=== PATIENT | female | born 1990 | race Caucasian/White ===

== ENCOUNTER 2018-08-09 18:27 | Observation (INO) | payer MEDICARE ==
[2018-08-09] MEDS ORDERED: CLINDAMYCIN 900 MG PREMIX IVPB 900 MG/50 ML BAG IVPB ONE ×2 (19:07→19:39)
[2018-08-09] MEDS ORDERED: DEXAMETHASONE SOD PHOSPHATE 10 MG/1 ML VIAL IVPUSH ONE (19:07)
--- NOTE | 2018-08-09 19:18 | PDOC ---
Attending Attestation - Resident Resident Name: Jimmie Lopez - ED Attending Attestation I have performed the following: I have examined & evaluated the patient, The case was reviewed & discussed with the resident, I agree w/resident's findings & plan, Exceptions are as noted - Physicial Exam PE: 08/09/18 20:23 Patient is awake and alert, febrile, in mild distress Normocephalic and atraumatic PERRLA, EOMI, no photophobia + Dysphonia; + Pooling of secretions is noted within the oropharynx; uvula is displaced of the right; Neck is supple; left anterior cervical lymphadenopathy (enlarged) cta rrr - Medical Decision Making 08/09/18 20:24 28-year-old female presents with 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 We will administer IV clindamycin. Will attempt drainage of the abscess. Likely placement in observation for observation and IV antibiotics. 08/09/18 20:56 Attempted needle aspiration of the FINANCIAL SERVICES PROFESSIONAL. Several attempts were made but no purulent material aspirated. Patient tolerated procedure well. Peritonsillar cellulitis is suspected. We'll place in observation for IV antibiotics. <Vincent Casillas - Last Filed: 08/09/18 20:56> - HPI HPI: 08/09/18 21:19 The patient is a 28 year old female, with no significant PMH, who presents to the emergency department with 2 days of sore throat. The patient states the sore throat pain is worsened with swallowing. The patient also endorses a mild fever but denies recent chills. The patient denies chest pain, shortness of breath, headache and dizziness. Denies chills, nausea, vomit, diarrhea and constipation. Denies dysuria, frequency, urgency and hematuria. Allergies: NKA Documentation prepared by Wojciech Cutler, acting as manager medical device for Vincent Casillas MD. <Wojciech Cutler - Last Filed: 08/09/18 21:20>
[2018-08-09] MEDS ORDERED: CLINDAMYCIN 600MG PREMIX IVPB 600 MG/50 ML BAG IVPB ONE (19:38)
[2018-08-09] MEDS ORDERED: DEXAMETHASONE SOD PHOSPHATE 10 MG/1 ML VIAL ONE (19:39)
[2018-08-09 19:41] LABS: BASO % 0.4 % (0-2.0); EOS % 0.2 % (0-4.5); HEMOGLOBIN 13.4 GM/dL (10.7-15.3); LYMPH % 15.4 % (8-40); MCH 27.3 pg (25.7-33.7); MCHC 33.5 g/dl (32.0-36.0); MEAN CELL VOLUME 81.4 fl (80-96); MEAN PLT VOLUME 7.7 fl (7.5-11.1); MONO % 3.8 % (3.8-10.2); NEUT % 80.2 % (42.8-82.8); PLATELET COUNT 371 K/MM3 (134-434); RBC 4.92 M/mm3 (3.60-5.2); WHITE BLOOD COUNT 14.8 K/mm3 (4.0-10.0)
[2018-08-09 20:03] LABS: INR 1.2 (0.83-1.09); PROTHROMBIN TIME (PATIENT) 14.2 SEC (9.7-13.0)
--- NOTE | 2018-08-09 21:03 | PDOC ---
History of Present Illness - General Chief Complaint: Sore Throat Stated Complaint: FEVER/PAIN Time Seen by Provider: 08/09/18 18:59 History Source: Patient Exam Limitations: No Limitations - History of Present Illness Initial Comments: 08/09/18 21:00 The patient is a 28F with no PMH who presents to the ER with complaints of a sore throat. The patient states that she's had a sore throat for 2 days and it has not improved. She states that the pain is worse and she has difficulty swallowing. She has no problem breathing. She admits to a mild fever but no chills, nausea, vomiting, CP, or SOB. Past History - Past Medical History Allergies/Adverse Reactions: Allergies Allergy/AdvReac Type Severity Reaction Status Date / Time No Known Allergies Allergy Verified 08/09/18 18:52 - Suicide/Smoking/Psychosocial Hx Smoking History: Never smoked Review of Systems - Review of Systems Able to Perform ROS?: Yes Comments:: 08/09/18 21:01 GENERAL/CONSTITUTIONAL: No fever or chills. No weakness. HEAD, EYES, EARS, NOSE AND THROAT: Positive for sore throat. No change in vision. No ear pain or discharge. CARDIOVASCULAR: No chest pain, palpitations, or lightheadedness. RESPIRATORY: No cough, wheezing, shortness of breath, or hemoptysis. GASTROINTESTINAL: No nausea, vomiting, diarrhea, constipation, or abdominal pain. GENITOURINARY: No dysuria, frequency, hematuria, or change in urination. MUSCULOSKELETAL: No joint or muscle swelling or pain. No neck or back pain. SKIN: No rash or lesions. NEUROLOGIC: No headache, numbness, tingling, focal weakness, loss of consciousness, or change in strength/sensation. Is the patient limited Latvian proficient: No *Physical Exam - Vital Signs Last Vital Signs Temp Pulse Resp BP Pulse Ox 99.9 F H 92 H 18 112/67 99 08/09/18 18:53 08/09/18 18:53 08/09/18 18:53 08/09/18 18:53 08/09/18 18:53 - Physical Exam Comments: 08/09/18 21:01 GENERAL: Well developed, well nourished. Awake and alert. No acute distress. HEENT: Peritonsillar fullness representing an abscess on L side. Normocephalic, atraumatic. Hearing grossly normal. Moist mucous membranes. PERRLA, EOMI. No conjunctival pallor. Sclera are non-icteric. NECK: Supple. Full ROM. Fullness on L neck. CARDIOVASCULAR: Regular rate and rhythm. No murmurs, rubs, or gallops. PULMONARY: No evidence of respiratory distress. Lungs clear to auscultation bilaterally. No wheezing, rales or rhonchi. ABDOMINAL: Soft. Non-tender. Non-distended. No rebound or guarding. GENITOURINARY: No CVA tenderness bilaterally. MUSCULOSKELETAL: Normal range of motion at all joints. No bony deformities or tenderness. EXTREMITIES: No cyanosis. No clubbing. No edema. No calf tenderness or swelling. SKIN: Warm and dry. Normal capillary refill. No rashes. No jaundice. NEUROLOGICAL: Alert, awake, appropriate. Cranial nerves 2-12 grossly intact. Normal speech. Gait is normal without ataxia. PSYCHIATRIC: Cooperative. Good eye contact. Appropriate mood and affect. ED Treatment Course - LABORATORY CBC & Chemistry Diagram: 08/09/18 19:34 08/09/18 19:34 - ADDITIONAL ORDERS Additional order review: Laboratory Results 08/09/18 08/09/18 19:34 19:34 PT with INR 14.20 H INR 1.20 H Sodium Cancelled Potassium Cancelled Chloride Cancelled Carbon Dioxide Cancelled Anion Gap Cancelled BUN Cancelled Creatinine Cancelled Creat Clearance w eGFR Cancelled Random Glucose Cancelled Calcium Cancelled Total Bilirubin Cancelled AST Cancelled ALT Cancelled Alkaline Phosphatase Cancelled Total Protein Cancelled Albumin Cancelled 08/09/18 19:34 RBC 4.92 MCV 81.4 MCHC 33.5 RDW 14.0 MPV 7.7 Neutrophils % 80.2 Lymphocytes % 15.4 Monocytes % 3.8 Eosinophils % 0.2 Basophils % 0.4 - Medications Given in the ED: ED Medications Discontinued Medications Generic Name Dose Route Start Last Admin Trade Name Freq PRN Reason Stop Dose Admin Dexamethasone Sodium Phosphate 10 mg 08/09/18 19:07 08/09/18 19:44 Decadron Injection - IVPUSH 08/09/18 19:08 10 mg ONCE ONE Administration Clindamycin Phosphate 900 mg in 50 mls @ 100 mls/hr 08/09/18 19:07 08/09/18 19:44 Cleocin 900 Mg Premix Ivpb - IVPB 08/09/18 19:36 100 mls/hr ONCE ONE Administration Protocol Medical Decision Making - Medical Decision Making 08/09/18 21:02 The patient is a 28F with no PMH who 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 Needle aspiration attempted without success. Pt is tolerating secretions and has a patent airway. Will admit for IV abx. Steroids and IV abx given. Microblogged for admission. *DC/Admit/Observation/Transfer - Discharge Dispostion Decision to Admit order Date/Time: Decision to Admit Order Category Date Time Status Decision to Admit to Hospital Routine Admission 08/09/18 20:32 Active - Referrals - Patient Instructions - Post Discharge Activity
--- NOTE | 2018-08-09 21:37 | HP ---
CHIEF COMPLAINT: sore throat PCP:will see Dr Vann at [facility] out pt clinic HISTORY OF PRESENT ILLNESS: 28 year old female with no pmhx presented to the ED with 2 days history fo sore throat and fver, symptoms started yesterday morning and worsening through out the day , pain is between 5/10 and 10/10 radiated to her left ear associated with fever and chills. 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 she reports slight headache, but denies any blurry vision , runny nose , ear discharged, denies any chest pain , sob, palpitation, abdominal pain , N/V/D/C, denies any urinary symptoms or joint pain. LMP 4 weeks ago ,did not get her period yet , sexually active with her no condoms, IUD or OCP was reported. ER course was notable for: (1)cbc , bmp (2)Bhcg (3) Abx clindamycine Recent Travel:denies PAST MEDICAL HISTORY:none PAST SURGICAL HISTORY:none Social History: Smoking:denies Alcohol:denies Drugs: denies Family History: Allergies No Known Allergies Allergy (Verified 08/09/18 18:52) HOME MEDICATIONS: REVIEW OF SYSTEMS CONSTITUTIONAL: Absent: fever, chills, diaphoresis, generalized weakness, malaise, loss of appetite, weight change HEENT: Absent: rhinorrhea, nasal congestion, throat pain, throat swelling, difficulty swallowing, mouth swelling, ear pain, eye pain, visual changes CARDIOVASCULAR: Absent: chest pain, syncope, palpitations, irregular heart rate, lightheadedness , peripheral edema RESPIRATORY: Absent: cough, shortness of breath, dyspnea with exertion, orthopnea, wheezing, stridor, hemoptysis GASTROINTESTINAL: Absent: abdominal pain, abdominal distension, nausea, vomiting, diarrhea, constipation, melena, hematochezia GENITOURINARY: Absent: dysuria, frequency, urgency, hesitancy, hematuria, flank pain, genital pain MUSCULOSKELETAL: Absent: myalgia, arthralgia, joint swelling, back pain, neck pain SKIN: Absent: rash, itching, pallor HEMATOLOGIC/IMMUNOLOGIC: Absent: easy bleeding, easy bruising, lymphadenopathy, frequent infections ENDOCRINE: Absent: unexplained weight gain, unexplained weight loss, heat intolerance, cold intolerance NEUROLOGIC: Absent: headache, focal weakness or paresthesias, dizziness, unsteady gait, seizure, mental status changes, bladder or bowel incontinence PSYCHIATRIC: Absent: anxiety, depression, suicidal or homicidal ideation, hallucinations. PHYSICAL EXAMINATION Vital Signs - 24 hr 08/09/18 18:53 Temperature 99.9 F H Pulse Rate 92 H Respiratory 18 Rate Blood Pressure 112/67 O2 Sat by Pulse 99 Oximetry (%) GENERAL: AAOx 3 in mild distress HEAD:NC/AT EYES: JANETTE, EOMI ,sclera anicteric, conjunctiva clear. EARS, NOSE, THROAT: Ears normal, nares patent, oropharynx enlarged left tonsills with petechia and exudates. left peritonsillar mass Moist mucous membranes. NECK: Normal range of motion, supple left anterior lymphadenopathy,No JVD, LUNGS: CTA B/L , No wheezes, and no crackles. No accessory muscle use. HEART: RRR, normal S1 and S2 without murmur, ABDOMEN: Soft, nontender, not distended, normoactive bowel sounds, no guarding, no rebound, LOWER EXTREMITIES: 2+ pulses, warm, well-perfused. No calf tenderness. No peripheral edema. NEUROLOGICAL: no focal deficit . Normal speech. PSYCHIATRIC: Cooperative. Good eye contact. Appropriate mood and affect. SKIN: Warm, dry, normal turgor, Laboratory Results - last 24 hr 08/09/18 08/09/18 08/09/18 19:34 19:34 19:34 WBC 14.8 H RBC 4.92 Hgb 13.4 Hct 40.0 MCV 81.4 MCH 27.3 MCHC 33.5 RDW 14.0 Plt Count 371 MPV 7.7 Absolute Neuts (auto) 11.8 H Neutrophils % 80.2 Lymphocytes % 15.4 Monocytes % 3.8 Eosinophils % 0.2 Basophils % 0.4 Nucleated RBC % 0 PT with INR 14.20 H INR 1.20 H Sodium Cancelled Potassium Cancelled Chloride Cancelled Carbon Dioxide Cancelled Anion Gap Cancelled BUN Cancelled Creatinine Cancelled Creat Clearance w eGFR Cancelled Random Glucose Cancelled Calcium Cancelled Total Bilirubin Cancelled AST Cancelled ALT Cancelled Alkaline Phosphatase Cancelled Total Protein Cancelled Albumin Cancelled Blood Type Antibody Screen 08/09/18 19:34 WBC RBC Hgb Hct MCV MCH MCHC RDW Plt Count MPV Absolute Neuts (auto) Neutrophils % Lymphocytes % Monocytes % Eosinophils % Basophils % Nucleated RBC % PT with INR INR Sodium Potassium Chloride Carbon Dioxide Anion Gap BUN Creatinine Creat Clearance w eGFR Random Glucose Calcium Total Bilirubin AST ALT Alkaline Phosphatase Total Protein Albumin Blood Type O POSITIVE Antibody Screen Negative CBC, BMP 08/09/18 19:34 ASSESSMENT/PLAN: 28 year old female with no pmhx presented to Ed with 2 days history of sore throat and fever was found to have peritonsillar abscess. #left Peritonsillar abscess * sore throat and fever x2 days * wbc 14.8 * started on clindamycine in ED will cont 600 mg IV Q 6hr * dexamethasone 10 mg IV one dose in ED * BHCG to R/O * if negative CT neck * admit to obs * IV fluids * cbc, bmp , ESR * Ibuprofen for pain # FEN * F: NS @ 100 CC/hr * E: monitor * N: NPO # Proph * scds both legs # dispo * admit to obs
--- NOTE | 2018-08-09 21:43 | PN ---
Teaching Attending Note Name of Resident: Garrick Vann ATTENDING PHYSICIAN STATEMENT I saw and evaluated the patient. I reviewed the resident's note and discussed the case with the resident. I agree with the resident's findings and plan as documented. SUBJECTIVE: Patient is a 28 year old woman with no significant PMH who presents to the ER with complaints of a sore throat. The patient states that she's had a sore throat for 2 days and it has not improved. She states that the pain is worse and she has difficulty swallowing. She has no problem breathing. She admits to a mild fever but no chills, nausea, vomiting, CP, or SOB. Was exposed to a sick contact at work recently. LMP was 4 weeks ago. Suspected peritonsillar abscess, aspiration attempts did not yield any fluid. She got decadron and clindamycin IV in the ER. OBJECTIVE: Alert Vital Signs Period Temp Pulse Resp BP Sys/Mustafa Pulse Ox Last 24 Hr 99.9 F 92 18 112/67 99 HEENT: No Jaundice, eye redness or discharge, PERRLA, EOMI. Normocephalic, atraumatic. Unable to open mouth very wide; peritonsillar fullness; External ears are normal and hearing is grossly intact. No nasal discharge. Neck: Left neck fullness, tender with adenopathy. No JVD Chest: Good effort. Clear to auscultation and percussion. Heart: Regular. No S3, rub or murmur Abdomen: Not distended, soft, nontender and no HSM. No rebound or guarding. Normoactive bowel sounds. Ext: Peripheral pulses intact. No leg edema. Skin: Warm and dry. No petechiae, rash or ecchymosis. Neuro: Alert. Oriented x3. CN 2-12 grossly intact. Sensation grossly intact in all four extremities and DTR are symmetric. Abnormal Lab Results 08/09/18 08/09/18 19:34 19:34 WBC 14.8 H Absolute Neuts (auto) 11.8 H PT with INR 14.20 H INR 1.20 H ASSESSMENT AND PLAN: 1. Tonsillitis/Peritonsillar cellulitis - Will get a CT scan of neck to rule out abscess and/or airway impingement. Already got Decadron. Will continue Clindamycin 600 mg IV q 6 hours, IV NS at 100 ml/hour and monitor closely for respiratory distress or stridor. Implement aspiration precautions. If no improvement in 24 hours, will expand antibiotics coverage. Consult ENT if CT scan shows peritonsillar abscess. Consult ID. 2. DVT prophylaxis - Lovenox 40 mg SQ q 24 hours. 3. Advance directives - Full code
[2018-08-09 21:51] LABS: INR 1.28 (0.83-1.09); PROTHROMBIN TIME (PATIENT) 15.1 SEC (9.7-13.0)
[2018-08-09 22:04] LABS: ALBUMIN 3.8 g/dl (3.4-5.0); ALK PHOS 103 U/L (45-117); ANION GAP 10 MMOL/L (8-16); BLOOD UREA NITROGEN 9 mg/dL (7-18); CALCIUM 8.7 mg/dL (8.5-10.1); CHLORIDE 102 mmol/L (98-107); CO2 23 mmol/L (21-32); CREATININE 0.6 mg/dL (0.55-1.3); GLUCOSE,RANDOM 91 mg/dL (74-106); POTASSIUM 3.7 mmol/L (3.5-5.1); SGOT/AST 17 U/L (15-37); SGPT/ALT 29 U/L (13-61); SODIUM 135 mmol/L (136-145); TOT PROT 8.2 g/dl (6.4-8.2)
[2018-08-09] MEDS ORDERED: SODIUM CHLORIDE 1,000 ML IV SCH (22:45)
[2018-08-09] MEDS ORDERED: IBUPROFEN 400 MG TABLET (FP) PO PRN (23:06)
[2018-08-10 01:56] VITALS: BMI 24.0
[2018-08-10] MEDS: CLINDAMYCIN 600MG PREMIX IVPB 600 MG/50 ML BAG IVPB SCH ×2 (02:43→09:13)
[2018-08-10 06:10] VITALS: TEMP 98.2
[2018-08-10 08:22] LABS: BASO % 0.1 % (0-2.0); HEMATOCRIT 37.3 % (32.4-45.2); HEMOGLOBIN 12.3 GM/dL (10.7-15.3); LYMPH % 9.7 % (8-40); MEAN CELL VOLUME 81.7 fl (80-96); MEAN PLT VOLUME 7.8 fl (7.5-11.1); NEUT % 89.2 % (42.8-82.8); PLATELET COUNT 355 K/MM3 (134-434); RBC 4.56 M/mm3 (3.60-5.2); RDW 13.7 % (11.6-15.6); WHITE BLOOD COUNT 11.7 K/mm3 (4.0-10.0)
[2018-08-10 08:33] LABS: ANION GAP 12 MMOL/L (8-16); BLOOD UREA NITROGEN 16 mg/dL (7-18); CALCIUM 8.7 mg/dL (8.5-10.1); CHLORIDE 106 mmol/L (98-107); CO2 22 mmol/L (21-32); CREATININE 0.5 mg/dL (0.55-1.3); GLUCOSE,RANDOM 101 mg/dL (74-106); POTASSIUM 3.9 mmol/L (3.5-5.1); SODIUM 140 mmol/L (136-145)
[2018-08-10 09:30] LABS: INR 1.26 (0.83-1.09); PROTHROMBIN TIME (PATIENT) 14.9 SEC (9.7-13.0)
[2018-08-10 14:27] VITALS: BP 95/57; PULSE 82
== END 2018-08-10 15:53 | disposition home or self-care (01) ==
LOC: JER 18:27 → JERBED 20:32 → J7W 08-10 01:28
PROVIDERS: ADMIT Internal Medicine; ATTEND Internal Medicine
PROC: 3E03329 Introduction of Other Anti-infective into Peripheral Vein, Percutaneous Approach (ICD-10-PCS; principal; 2018-08-09)
PROC: 3E033NZ Introduction of Analgesics, Hypnotics, Sedatives into Peripheral Vein, Percutaneous Approach (ICD-10-PCS; 2018-08-09)
PROC: 3E0337Z Introduction of Electrolytic and Water Balance Substance into Peripheral Vein, Percutaneous Approach (ICD-10-PCS; 2018-08-09)
DX: J36 Peritonsillar abscess (principal)
CPT/HCPCS: 36415; 70498-TC; 80048; 80053; 84702; 85025; 85610; 85730; 86850; 86900; 86901; 96365; 96375; 99283-25; G0378; J1100; J7030

== ENCOUNTER 2022-04-15 14:16 | Emergency (ER) | payer OTHER ==
[2022-04-15 14:38] VITALS: BP 125/62; PULSE 64; TEMP 98.2; BMI 25.2
[2022-04-15] MEDS ORDERED: SODIUM CHLORIDE 0.9% 500 ML INFUS.BAG IV ONE (15:32)
[2022-04-15] MEDS ORDERED: ACETAMINOPHEN 1000 MG/100 ML BAG IVPB ONE (15:32)
[2022-04-15] MEDS ORDERED: ACETAMINOPHEN INJECTION 100 ML IVPB ONE (15:57)
[2022-04-15 16:15] LABS: BASO % 0.7 % (0-2.0); EOS % 2.1 % (0-4.5); HEMATOCRIT 41.1 % (32.4-45.2); HEMOGLOBIN 13.4 GM/dL (10.7-15.3); LYMPH % 34.8 % (8-40); MCH 27.2 pg (25.7-33.7); MCHC 32.7 g/dl (32.0-36.0); MEAN CELL VOLUME 83.4 fl (80-96); MEAN PLT VOLUME 7.8 fl (7.5-11.1); NEUT % 58.4 % (42.8-82.8); PLATELET COUNT 379 10^3/uL (134-434); RBC 4.93 M/mm3 (3.60-5.2); RDW 14.2 % (11.6-15.6); WHITE BLOOD COUNT 7.9 K/mm3 (4.0-10.0)
[2022-04-15 16:31] LABS: CALCIUM 8.7 mg/dL (8.5-10.1)
[2022-04-15 16:32] LABS: ALBUMIN 3.8 g/dl (3.4-5.0); BLOOD UREA NITROGEN 9.2 mg/dL (7-18)
[2022-04-15 16:35] LABS: CREATININE 0.6 mg/dL (0.55-1.3)
[2022-04-15 16:37] LABS: BILIRUBIN,TOTAL 0.3 mg/dL (0.2-1); TOT PROT 7.4 g/dl (6.4-8.2)
[2022-04-15 16:39] LABS: HCG,QUALITATIVE URINE Negative
[2022-04-15 16:45] LABS: EPI CELLS >36 /uL (0-25.1); HYALINE CASTS 4 /uL (0-3.1); PH,URINE 5.5 (5.0-8.0); URINE APPEARANCE CLEAR; URINE BACTERIA 103 /uL (0-1359); URINE BILIRUBIN NEGATIVE (NEGATIVE); URINE COLOR YELLOW; URINE GLUCOSE (UA) NEGATIVE (NEGATIVE); URINE KETONE NEGATIVE (NEGATIVE); URINE LEUK ESTERASE NEGATIVE (NEGATIVE); URINE NITRITE NEGATIVE (NEGATIVE); URINE PROTEIN TRACE (NEGATIVE); URINE RBC 7 /uL (0-23.9); URINE WBC 5 /uL (0-25.8)
== END 2022-04-15 20:03 | disposition home or self-care (01) ==
LOC: JER 14:16
PROC: 3E033NZ Introduction of Analgesics, Hypnotics, Sedatives into Peripheral Vein, Percutaneous Approach (ICD-10-PCS; principal; 2022-04-15)
DX: N83.202 Unspecified ovarian cyst, left side (principal)
CPT/HCPCS: 36415; 76830-TC; 80053; 81003; 84703; 85025; 87086; 96374; 99284-25